=== PATIENT | female | born 2000 | race Caucasian/White ===

== ENCOUNTER 2020-09-17 02:29 | Emergency (ER) | payer OTHER ==
[~2020-09-17] VITALS: Ht 162.6 cm; Wt 46.7 kg
[2020-09-17 02:32] VITALS: BP 105/61
--- NOTE | 2020-09-17 02:38 | NUR ---
TO BED 11, AMBULATORY
[2020-09-17] MEDS ORDERED: CIPR7.5S OT (02:44)
[2020-09-17 03:06] VITALS: BP 105/61
--- NOTE | 2020-09-17 03:06 | NUR ---
Patient discharged with v/s stable. Written and verbal after care instructions given and explained. Patient alert, oriented and verbalized understanding of instructions. Ambulatory with steady gait. All questions addressed prior to discharge. ID band removed. Patient advised to follow up with PMD. Rx of CIPRODEX OTIC SUSPENSION given. Patient educated on indication of medication including possible reaction and side effects. Opportunity to ask questions provided and answered. NO NURSING INTERVENTIONS NEEDED.
== END 2020-09-17 03:06 | disposition home or self-care (01) ==
LOC: MED 02:29
DX: H60.92 Unspecified otitis externa, left ear (principal)
CPT/HCPCS: 99283